=== PATIENT | female | born 1980 | race Caucasian/White ===

== ENCOUNTER 2025-06-28 20:34 | Outpatient (REF) | payer OTHER, SELFPAY ==
--- OUTSIDE RECORDS SUMMARY | 2025-06-17 11:15 | XMS_ITS | Encounter Summary ---
Author Organization [facility] Address [address] [place] [address] Care Team Providers Care Soap Grinder Name Role Phone No, Physician Primary Care Provider Unavailabl e Reason for Visit * Reason Comments Foot Problem Basilio heel pain, sever e; making it diff to walk Encounter Details Date Type Department Care Team (Late st Contact Info) Description 06/17/2025 11:15 AM EDT Office Visit [facility] [address] [place] [phone] Britney Benson, DPM [address] [place] [address] Plantar fasciitis of right foot (Primary Dx); Equinus contracture of ankle; Right foot pain; Plantar fasciitis of left foot; Left foot pain Social History Tobacco Use Types Packs/Day Years Used Date Smoking Tobacco: Never Smokeless Tobacco: Never Alcohol Use Standard Drinks/Week Comments Never 0 (1 standard drink = 0.6 oz pur e alcohol) Comments No Sex and Gender Information Value Date Recorded Sex Assigned at Not on file Legal Sex Female 10:39 AM EDT Gender Identity Not on file Sexual Orientation Not on file documented as of this encounter Last Filed Vital Signs Vital Sign Reading Time Taken Comments Blood Pressure 170/120 06/17/2025 11:14 AM EDT Pulse 80 06/17/2025 11:14 AM EDT Temperature 36.7 C (98 F) 06/17/2025 11:14 AM EDT Respiratory Rate - - Oxygen Saturation - - Inhaled Oxygen Concentration - - Weight - - Height - - Body Mass Index - - documented in this encounter Progress Notes * Britney Benson DPM - 06/17/2025 11:25 AM EDT Images from the original note were not included. Britney Benson DPM Patient Name: Chaya Lopez. . Date of : 1980, 44 y.o.. Gender: female. Subjective: Patient is a pleasant 44-year-old female who presents to clinic complaining of significant pain to the right heel today. Patient states that she has been trying to stretch but it causes her too much pain. She is also complaining of left heel pain. Patient states that she is limping and unable to ambulate. No other pedal complaints at this time. Denies fevers, chills, nausea, vomiting, chest pain,shortness of breath, or any other constitutional symptoms. Past Medical History: Diagnosis Date ADHD Bipolar 2 disorder, major depressive episode (HCC) Bronchitis Cellulitis of left leg Complex posttraumatic stress disorder Diastolic dysfunction Dizziness Edema Exposure to hepatitis C GERD (gastroesophageal reflux disease) Grief History of drug abuse in remission (HCC) Hormonal disorder Hypertension Injury of left shoulder Iron deficiency Left ankle injury Lumbar back pain with radiculopathy affecting right lower extremity Morbid obesity with BMI of 45.0-49.9, adult (HCC) Nerve pain Ovarian cyst Pain of left heel Pain of left heel Plantar fasciitis, bilateral Pseudotumor cerebri PTSD (post-traumatic stress disorder) Pulmonary artery hypertension (HCC) Situational anxiety Snoring Varicose vein of leg Vitamin D deficiency Past Surgical History: Procedure Laterality Date CHOLECYSTECTOMY CYSTO HAND SURGERY metacarpal ORIF HERNIA REPAIR HYSTERECTOMY KNEE SURGERY Left TONSILLECTOMY Social History [1] Physical Examination: BP (!) 170/120 (BP Location: Right arm, BP Cuff Size: Adult) Pulse 80 Temp 98 ??F (36.7 ??C) (Infrared) General Appearance: Alert, cooperative, no distress, appears stated age. Podiatric Exam Vascular: DP and PT pulses are palpable 2/4. Capillary refill time is less than 3 secs to distal digits. Skin temperature is warm to warm from proximal tibial tuberosity to distal digit. Localized nonpitting edema noted circumferentially to the left ankle. Neurological: Gross sensation is intact. Protective sensation is intact. Burning pain subjectively to the posterior lateral left heel. Dermatologic: No ecchymosis noted to the dorsal left foot. Cicatrix noted to the posterior lateral left heel with mild hypertrophic scar formation. No surrounding erythema, edema, dehiscence or any acute signs of infection. Interdigital spaces are clean dry and intact. Musculoskeletal: Significant pain on palpation to the plantar medial calcaneal tubercle, right heel. Significant pain on palpation to the posterior lateral aspect of the left heel at the Achilles tendon insertion. Pain noted circumferentially to the left ankle. Ankle joint range of motion is intactbut diminished in dorsiflexion with the knee extended and full with knee flexion. Muscle strength is 5/5 to dorsiflexors, plantar flexors, inverters and everters. Compartments soft and compressible. No calf pain Diagnoses: 1. Plantar fasciitis of right foot 2. Equinus contracture of ankle 3. Right foot pain Imaging: Left foot 3 views weightbearing radiographs were ordered on 06/17/2025 and I interpreted them as follows: No acute fractures or dislocations at this time. Joint space narrowing noted to the first metatarsophalangeal joint. Joint space narrowing noted to the subtalar joint with sclerosis noted. Plantar and posterior calcaneal enthesophyte Right foot 3 views weightbearing radiographs were ordered on 06/17/2025 and I personally interpretedthem as follows: No acute fractures or dislocations at this time. Joint space narrowing noted to the first metatarsophalangeal joint. Joint space narrowing noted to the tarsal metatarsal joints and subtalar joint with sclerosis noted. Plantar and posterior calcaneal enthesophyte Assessment/Plan: 06/09/2025 Patient was seen and evaluated. Discussed all clinical findings. I ordered, interpreted, and discussed left foot radiographic findings with patient as noted above. Patient has posterior insertional Achilles tendinitis and retrocalcaneal bursitis to the left foot. Patient reports that an MRI was not obtained prior to surgical intervention. Discussed pain that her pain can also be related to nerve pain related to sural neuritis given proximity of the cicatrix to the nerve. Discussed conservative treatment option consisting of offloading in good supportive open back shoeswith a wedge heel and a solid sole. Discussed applying Voltaren gel 1% up to 4 times per day to affected area. Discussed stretching, icing, and a Medrol Dosepak was prescribed and sent to patient's pharmacy to help decrease pain and inflammation. Moreover, discussed with patient the importance of discussing weight loss medication with her primary care physician. Additionally, an order for physical therapy was placed. This is medical necessary to regain proper function of Achilles tendon. Physical therapy sessions are 2-3 times per week and up to 4 weeks. Regarding patient's left dorsal foot, patient has contusion related to recent injury to the dorsal left foot. Recommended icing daily. All questions were answered to patient satisfaction. Patient understands to call with any questionsor concerns. Follow-up in 2 weeks for reevaluation. 06/17/2025 Patient was seen and evaluated. Discussed all clinical and radiographic findings. I ordered, interpreted, and discussed left and right foot radiographic findings with patient as noted above. Patient has significant pain to the right and left heel. Patient was previously diagnosed with Achilles denies involving the left heel. On today's examination, patient's right heel pain is consistent with plantar fasciitis. Discussed conservative treatment options for plantar fasciitis including stretching, icing, anti-inflammatories, and good supportive shoes. I illustrated proper stretching techniques in the office. Advised on proper supporting shoes. Recommended a steroidal injection to help alleviate pain and inflammation at the heel site. Patientwas agreeable to proceed with this. See procedure below. PROCEDURE: Plantar fascial injection, right foot The medial aspect of the right heel was prepped with alcohol. Following, a 2 cc of 1: 1 mix of Kenalog 40 mg and 0.5% Marcaine plain was injected into the medial aspect of the right heel. Patient tolerated the injection well. A Band- Aid was applied at the injection site. Patient expressed some painrelief following the procedure. All questions were answered to patient satisfaction. Patient understands to call with any questionsor concerns. Follow-up in 2 weeks. This note was partially created using voice recognition software and is inherently subject to errors including those of syntax and sound-alike substitutions which may escape proofreading. In such instances, original meaning may be extrapolated by contextual derivation. Britney Benson DPM, MS Podiatric Physician & Surgeon [1] Social History Socioeconomic History Marital status: Tobacco Use Smoking status: Never Smokeless tobacco: Never Substance and Sexual Activity Alcohol use: Never Drug use: Yes Types: Marijuana Social History Narrative Merged History Encounter documented in this encounter Plan of Treatment Upcoming Encounters Date Type Department Care Team (Late st Contact Info) Description 07/05/2025 3:30 PM EDT Office Visit [facility] [address] [place] [phone] Britney Benson DPM [address] [place] [address] documented as of this encounter Visit Diagnoses Diagnosis Plantar fasciitis of right foot- Primary Equinus contracture of ankle Right foot pain Pain in soft tissues of limb Plantar fasciitis of left foot Left foot pain Pain in soft tissues of limb documented in this encounter Administered Medications Inactive Administered Medications - up to 3 most recent administrations Medication Order MAR Action Action Date Dose Rate Site BUPivacaine HCl (MARCAINE) 0.5 % (5 mg/mL) injection 1 mL 1 mL, Injection, Once, On [facility] 06/17/25 at 1230, For 1 dose Given by Other 06/17/2025 11:42 AM EDT 1 mL Other triamcinolone acetonide (KENALOG-40) injection 40 mg 40 mg, Injection, Once, On Marisela 06/17/25 at 1230, For 1 dose Given by Other 06/17/2025 11:43 AM EDT 40 mg Ot her documented in this encounter Care Teams Soap Grinder Relationship Specialty Start Date End Date No, Physician [facility] PCP - General 06/17/25 documented as of this encounter
--- OUTSIDE RECORDS SUMMARY | 2025-06-23 04:53 | XMS_ITS | Continuity of Care Document ---
Author Organization [facility] Address [address] [place] [address] Phone Care Team Providers Care Senior Label Specialist Name Role Phone Aliza Estrada, Ángela Unavailable Unavailab le Procedures Procedure Date PSYTX PT&/FAMILY 60 MINUTES PSYTX PT&/FAMILY 60 MINUTES PSYTX PT&/FAMILY 60 MINUTES PSYCH DIAGNOSTIC EVALUATION Advance Directives Directive Yes / No Effective Date File Name No Information Encounters Encounter Description Practice Location Reason(s) For Visit Diagnoses Date Provider Providers Copied on Encounter PSYTX PT&/FAMILY 60 MINUTES [facility], [address] [place] [address], [id number] , [place] tel:[phone] [facility] Generalized Anxiety DisorderPersistent Depressive DisorderBody mass index [BMI] 45.0-49.9, adult [address] [place] [address], [id number], [place]. tel:[phone] PSYTX PT&/FAMILY 60 MINUTES [facility], [address] [place] [address], [id number] , [place] tel:[phone] [facility] Generalized Anxiety DisorderPersistent Depressive DisorderBody mass index [BMI] 45.0-49.9, adult 5 Al[address] [place] [address], [address], [place]. tel:[phone] PSYTX PT&/FAMILY 60 MINUTES [facility], [address] [place] [address], [id number] , tel: [phone] [facility] Generalized Anxiety DisorderPersistent Depressive DisorderBody mass index [BMI] 45.0-49.9, adult [address] [place] [address], [id number], [place]. tel:[phone] PSYCH DIAGNOSTIC EVALUATION [facility], [address] [place] [address], [id number] , tel: [phone] [facility] Body mass index [BMI] 45.0-49.9, adultGeneralized Anxiety DisorderPersistent Depressive Disorder 5 [address] [place] [address], [id number], [place]. tel:[phone] Family History Family Member Type Diagnosis Age At Onset No Information Payers Payer name Insurance type Covered democrat ID Authoriza tion(s) [employer] Medicaid [id number] Medicaid Wrap - [facility] [id number] Social History Type Description Quantity Date Captured Comments Alcohol Use Details Unknown Caffeine Use Details Unknown Tobacco Use Status No Information Smoking Status No Information Sex Female Sexual Orientation Straight or heterosexual Aug Gender Identity Female Chief Complaint And Reason For Visit No Information Reason For Referral Reason For Referral No Information Plan Of Treatment Date Type Action Status Goal Influenza vaccine. Due on due Goal Tdap Vaccine. Due on 2024 due Goal Hep A. Due on du e Goal Unhealthy drug use screening . Due on due Goal Tdap. Due on due Goal Lipid panel. Due on due Goal HPV. Due on due Goal Depression screening. Due on due Goal Hepatitis C screening. Due o n due Goal PRAPARE ASSESSMENT. Due on due Goal Unhealthy drug use screening . Due on due Goal Hep A. Due on du e Goal Tdap. Due on due Goal HPV. Due on due Goal PRAPARE ASSESSMENT. Due on due Goal Hepatitis C screening. Due o n due Goal Lipid panel. Due on due Goal Depression screening. Due on due Goal Influenza vaccine. Due on due Goal Tdap Vaccine. Due on 2024 due Goal Hep A. Due on du e Goal Lipid panel. Due on due Goal Depression screening. Due on due Goal PRAPARE ASSESSMENT. Due on due Goal Influenza vaccine. Due on due Goal Hepatitis C screening. Due o n due Goal Unhealthy drug use screening . Due on due Goal Tdap Vaccine. Due on 2024 due Goal Tdap. Due on due Goal HPV. Due on due Goal Tdap Vaccine. Due on 2024 due Goal Influenza vaccine. Due on due Goal Depression screening. Due on due Goal PRAPARE ASSESSMENT. Due on M due Goal Hepatitis C screening. Due o n due Goal Lipid panel. Due on 025 due Goal HPV. Due on due Goal Tdap. Due on due Goal Unhealthy drug use screening . Due on due Appointment Chaya Lopez BOOKED History Of Present Illness Encounter Date Complaint History Of Prese nt Illness No Information Functional Status Date Functional Assessmen t No Information Instructions Date Instruction Additional Celine nelson Giving encouragement to exercise Related to Body mass index [BMI] 45.0-49.9, adult Food education, guid ance, and counseling Related to Body mass index [BMI] 45.0-49.9, adult Assessments Type Assessment Date assessment Generalized Anxiety Disorder May impression Social conflict, Rum ination, Low motivation, Apathy, Low attention maintenance, Tearfulness, Irritability, Frequently feelings of dread, low sleep onset and poor sleep maintenance assessment Persistent Depressive Disorder J impression Social conflict, Rum ination, Low motivation, Apathy, Low energy, Low self-efficacy, Low attention maintenance, Tearfulness, Irritability, fluctuating appetite, low sleep onset, and poor sleep maintenance assessment Body mass index [BMI] 45.0-49.9, adult Patient Care Teams Name Effective Dates (start - stop) Status Members No Information
--- OUTSIDE RECORDS SUMMARY | 2025-06-28 14:00 | XMS_ITS | Encounter Summary ---
Author Organization [facility] Address [address] [facility] [place] [address] Care Team Providers Care Home Care Manager Name Role Phone Iman Whittaker MD Primary Care Provider Holly Du MD Unavailable [phone] Reason for Visit * Reason Comments Well Women Visit Encounter Details Date Type Department Care Team (Latest Contact Info) Description 06/28/2025 2:00 PM EDT Procedure Visit [facility] [address] [place] [address] Chaya Caballero, FARAZ [address] [facility] [place] [address] Well woman exam with routine gynecological exam; Breast cancer screening by mammogram; Vaginal discharge; STD exposure; Frequent urination Social History Tobacco Use Types Packs/Day Years Used Date Smoking Tobacco: Never Alcohol Use Standard Drinks/Week Comments Yes 0 (1 standard drink = 0.6 oz pure alcohol) caffeine: more than 4 cups per day ; soda AUDIT-C Answer Date Recorded Q1: How often do you have a drink containing alc ohol? Monthly or less 03/25/2024 Q2: How many drinks containi ng alcohol do you have on a typical day when you are drinking? 3 or 4 03/25/2024 Q3: How often do you have si x or more drinks on one occasion? Less than monthly 03/25/2024 Comments Unknown Sex and Gender Information Value Date Recorded Sex Assigned at Not on file Legal Sex Female 7:37 PM EDT Gender Identity Not on file Sexual Orientation Not on file documented as of this encounter Progress Notes * Chaya Caballero NP - 06/28/2025 2:00 PM EDT Reason for Appointment: Patient ID: Lisa Lopez is a 44 y.o. female who presents for Well Women Visit Patient presents today for Annual Exam. MEDICATIONS Current Outpatient Medications Medication Instructions acetaZOLAMIDE (DIAMOX) 250 mg, Oral, 2 times daily albuterol HFA 90 mcg/act inhaler Inhale ALPRAZolam (Xanax) 0.5 MG tablet 1 TAB(S) ORAL TWICE A DAY ,X14 DAY(S), NEEDED FOR ANXIETY amphetamine-dextroamphetamine (Adderall) 10 MG tablet 1 tablet, 2 times daily amphetamine-dextroamphetamine XR (Adderall XR) 30 MG 24 hr capsule TAKE 1 CAPSULE BY MOUTH EVERY DAY IN THE MORNING Buprenorphine HCl-Naloxone HCl (Suboxone) 8-2 MG SL film Sublingual, Daily, DISSOLVE 1 AND 1/4 FILM citalopram (CELEXA) 40 mg, Oral, Daily, 1 tablet doxepin (SINEquan) 25 MG capsule Dulera 200-5 MCG/ACT inhaler Inhalation, Every 12 hours fluticasone (Flonase) 50 MCG/ACT nasal spray 1 spray, Each Nostril, Daily, Shake gently. Before first use, prime pump. After use, clean tip and replace cap. hydrOXYzine pamoate (Vistaril) 50 MG capsule TAKE 1 CAPSULE BY MOUTH EVERY AFTERNOON AND 2 CAPSULESAT BEDTIME ibuprofen 800 mg, Oral, Every 8 hours, 1 tablet with food or milk ipratropium-albuterol (Duo-Neb) 0.5-2.5 mg/3 mL nebulizer solution 3 mL, Nebulization, 4 times daily RT, INHALE 1 VIAL VIA NEBULIZER FOUR TIMES A DAY NEEDED FOR WHEEZING KLOR-CON 10 MEQ ER tablet 10 mEq, Oral, 3 times daily, 1 capsule lamoTRIgine (LAMICTAL) 200 mg, Oral, Daily meclizine (ANTIVERT) 25 mg, Oral, 3 times daily PRN, 1 tablet montelukast (SINGULAIR) 10 mg, Oral, Daily nitrofurantoin (macrocrystal-monohydrate) (MACROBID) 100 mg, Oral, 2 times daily nortriptyline (PAMELOR) 25 mg, Oral, Nightly, 1 capsule ondansetron ODT (ZOFRAN-ODT) 8 mg, Oral, Every 8 hours PRN, 1 tablet on the tongue and allow to dissolve as needed pantoprazole (PROTONIX) 40 mg, Oral, Daily, 1 tablet tiZANidine (Zanaflex) 4 MG tablet Oral, 4 times daily, 1 tablet tiZANidine (ZANAFLEX) 4 mg, Oral, Every 6 hours PRN verapamil SR (CALAN SR) 120 mg, Oral, Daily ALLERGIES Allergies Allergen Reactions Barium Sulfate Seroquel [Quetiapine] Tylenol [Acetaminophen] PROBLEMS Active Ambulatory Problems Diagnosis Date Noted Insomnia 03/25/2024 Headache 03/25/2024 Obesity 03/25/2024 Common migraine 03/25/2024 Idiopathic intracranial hypertension 03/25/2024 Sleep related hypoxia 03/25/2024 Resolved Ambulatory Problems Diagnosis Date Noted No Resolved Ambulatory Problems Past Medical History: Diagnosis Date Anxiety Asthma (HCC) Benign intracranial hypertension Bipolar disorder (HCC) Depression Hepatitis B History of medical problems Insomnia, unspecified Kidney disease Kidney stones Papilledema Pseudotumor cerebri PTSD (post-traumatic stress disorder) HISTORY PAST MEDICAL HISTORY SOCIAL HISTORY Past Medical History: Diagnosis Date Anxiety Asthma (HCC) Benign intracranial hypertension Bipolar disorder (HCC) Common migraine Depression Headache Hepatitis B History of medical problems buldging disc Insomnia, unspecified Kidney disease Kidney stones Obesity Papilledema Pseudotumor cerebri PTSD (post-traumatic stress disorder) Social History Tobacco Use Smoking status: Never Smokeless tobacco: Not on file Substance Use Topics Alcohol use: Yes Comment: caffeine: more than 4 cups per day ; soda Drug use: Yes Types: Marijuana FAMILY HISTORY Family History Problem Relation Name Age of Onset Bipolar disorder Mother Stroke Father Hypertension Other SURGICAL HISTORY Past Surgical History: Procedure Laterality Date CHOLECYSTECTOMY HERNIA REPAIR HYSTERECTOMY 2005 KNEE SURGERY Right 2001 LITHOTRIPSY 2009 OOPHORECTOMY Right 2016 left remains OTHER SURGICAL HISTORY cholectomy OTHER SURGICAL HISTORY 04/16/2018 Rt 5th ORIF DAP TONSILLECTOMY age 11 REVIEW OF SYSTEMS Review of Systems: Review of Systems Constitutional: Negative. HENT: Negative. Eyes: Negative. Respiratory: Negative. Cardiovascular: Negative. Gastrointestinal: Negative. Genitourinary: Positive for vaginal discharge. Musculoskeletal: Negative. Skin: Negative. Neurological: Negative. All other systems reviewed and are negative. Hematological: Negative. Endocrine: Negative. Allergic/Immunologic: Negative. OBJECTIVE Objective: Physical Exam Constitutional: Appearance: Normal appearance. She is well-developed. Genitourinary: Vulva normal. Breasts: Breasts are soft. Right: Normal. Left: Normal. Cardiovascular: Rate and Rhythm: Normal rate and regular rhythm. Pulmonary: Effort: Pulmonary effort is normal. Breath sounds: Normal breath sounds. Abdominal: General: Bowel sounds are normal. There is no distension. Palpations: Abdomen is soft. Tenderness: There is no abdominal tenderness. There is no guarding or rebound. Musculoskeletal: General: No swelling. Normal range of motion. Right lower leg: No edema. Left lower leg: No edema. Neurological: Mental Status: She is alert and oriented to person, place, and time. Skin: General: Skin is warm and dry. Psychiatric: Mood and Affect: Mood normal. Behavior: Behavior normal. Vitals and nursing note reviewed. Exam conducted with a rn dermatology present. Vitals: Estimated body mass index is 46.67 kg/m?? as calculated from the following: Height as of 02/02/25: 5' 9 . Weight as of 02/02/25: 316 lb. BP: No LMP recorded. ASSESSMENT & PLAN ICD-10-CM 1. Well woman exam with routine gynecological exam Z01.419 THIN PREP TIS PAP AND HR HPV DNA 2. Breast cancer screening by mammogram Z12.31 Bilateral screening mammogram Bilateral screening mammogram 3. Vaginal discharge N89.8 SURESWAB(R) ADVANCED VAGINITIS PLUS, TMA 4. STD exposure Z20.2 CHLAMYDIA TRACHOMATIS (GENITO/STI) Neisseria gonorrhea DNA probe, direct 5. Frequent urination R35.0 POCT urinalysis dipstick manually resulted Annual Exam: Patient presents today for an annual exam. Patient states she is doing well and has no complaints. Pt requests that STD testing be done. Pap/cxs was obtained without difficulty. Orders Placed This Encounter Procedures Bilateral screening mammogram CHLAMYDIA TRACHOMATIS (GENITO/STI) Neisseria gonorrhea DNA probe, direct POCT urinalysis dipstick manually resulted Follow Up: Patient is to return in one year for annual unless needed otherwise. Documented by Suzi Stephens LPN on behalf of: Chaya Caballero NP documented in this encounter Plan of Treatment Scheduled Orders Name Type Priority Associated Diagnoses Orde r Schedule Bilateral screening mammogram Imaging Routine Breast cancer screening by mammogram Expected: 06/28/2025 (Approximate), Expires: 08/28/2026 THIN PREP TIS PAP AND HR HPV DNA Pathology and Cytology Routine Well woman exam with routine gynecological exam Ordered: 06/28/2025 SURESWAB(R) ADVANCED VAGINITIS PLUS, TMA Pathology and Cytology Routine Vaginal discharge Ordered: 06/28/2025 CHLAMYDIA TRACHOMATIS (GENITO/STI) Lab Routine STD exposure Ordered: 06/28/2025 Neisseria gonorrhea DNA probe, direct Lab Routine STD exposure Ordered: 06/28/2025 documented as of this encounter Procedures Procedure Name Priority Date/Time Associated Diagnosis Comments POCT URINALYSIS DIPSTICK Routine 06/28/2025 3:28 PM EDT Frequent urination documented in this encounter Results * (ABNORMAL) POCT urinalysis dipstick manually resulted (06/28/2025 3:28 PM EDT) Color, UA Yellow Clarity, UA Clear Glucose, UA Positive Negative - 2000(110) ++++ mg/dL Bilirubin, UA Negative Negative - 4(70) +++ mg/dL Ketones, UA Negative Negative - 160(16) ++++ mg/dL Spec Grav, UA 1.025 1 - 1.03 Blood, UA Negative Negative - 50 Galen/mcL pH, UA 6.0 5 - 9 Protein, UA Negative Negative - 2000(20) ++++ mg/dL Urobilinogen, UA 1.0 0.2 - 12 mg/dL Leukocytes, UA Negative Negative - 500+++ Eh/mcL Nitrite, UA Negative Negative - Positive Urine 06/28/2025 3:28 PM EDT Chaya Caballero NP POINT OF CARE TEST ENTER/EDIT ORDERABLES Final Result documented in this encounter Visit Diagnoses Diagnosis Well woman exam with routine gynecological exam Routine gynecological examination Breast cancer screening by mammogram Vaginal discharge Leukorrhea, not specified as infective STD exposure Frequent urination Urinary frequency documented in this encounter Care Teams Home Care Manager Relationship Specialty Start Date End Date Iman Whittaker MD [address] [place] [phone] PCP - General Family Medicine 08/24/24 Holly Du MD [address] [place] [id number] Referring Physician Family Medicine 02/23/25 documented as of this encounter
--- OUTSIDE RECORDS SUMMARY | 2025-06-28 20:38 | XMS_ITS | Encounter Summary ---
Author Organization [facility] Address [address] [facility] [place] [address] Care Team Providers Care Hairspring Fabrication Supervisor Name Role Phone Iman Whittaker MD Primary Care Provider Holly Du MD Unavailable Encounter Details Date Type Department Care Team (Late st Contact Info) Description 06/21/2025 Abstract [facility] [address] [place] [address] Florencio Villanueva, DPM FACFAS [address] [facility] [place] [address] Social History Tobacco Use Types Packs/Day Years [...] on file documented as of this encounter Plan of Treatment Not on file documented as of this encounter Visit Diagnoses Not on filedocumented in this encounter Care Teams Hairspring Fabrication Supervisor Relationship Specialty Start Date End Date Iman Whittaker MD [address] [place] [address] PCP - General Family Medicine 08/24/24 Holly Du MD [address] [facility] [address] [place] [address] Referring Physician Family Medicine 02/23/25 documented as of this encounter
--- OUTSIDE RECORDS SUMMARY | 2025-06-28 20:38 | XMS_ITS | Clinical Summary ---
Author Organization [facility] Address [address] [place] [address] Care Team Providers Care Discotheque Dancer Name Role Phone Iman Whittaker MD Primary Care Provider [phone] Holly Du MD Unavailable Allergies Active Allergy Reactions Criticality Noted Date Comments Barium Sulfate 03/25/2024 Quetiapine 03/25/2024 Acetaminophen 03/25/2024 Medications albuterol HFA 90 mcg/act inhaler Inhale 11/22/20 23 Active ALPRAZolam (Xanax) 0.5 MG tablet 1 TAB(S) ORAL TWICE A DAY ,X14 DAY(S), NEEDED FOR ANXIETY 06/18/20 23 Active Buprenorphine HCl-Naloxone HCl (Suboxone) 8-[address] under the tongue Daily DISSOLVE 1 AND 1/4 FILM 11/26/19 24 Active citalopram (CeleXA) 40 MG tablet Take 40 mg by mouth Daily 1 tablet 11/22/20 23 Active doxepin (SINEquan) 25 MG capsule 11/22/20 23 Active hydrOXYzine pamoate (Vistaril) 50 MG capsule TAKE 1 CAPSULE BY MOUTH EVERY AFTERNOON AND 2 CAPSULES AT BEDTIME 11/22/20 23 Active ibuprofen 800 MG tablet Take 800 mg by mouth every 8 (eight) hours 1 tablet with food or milk 11/22/20 23 Active ipratropium-albute rol (Duo-Neb) 0.5-2.5 mg/3 mL nebulizer solution Take 3 mL by nebulization in the morning and 3 mL at noon and 3 mL in the evening and 3 mL before bedtime. INHALE 1 VIAL VIA NEBULIZER FOUR TIMES A DAY NEEDED FOR WHEEZING . 09/23/20 Active Dulera 200-5 MCG/ACT inhaler Inhale every 12 (twelve) hours Active nitrofurantoin, macrocrystal-monoh ydrate, (Macrobid) 100 MG capsule Take 100 mg by mouth in the morning and 100 mg before bedtime. 09/12/20 Active montelukast (Singulair) 10 MG tablet Take 10 mg by mouth Daily 11/22/20 Active pantoprazole (ProtoNix) 40 MG EC tablet Take 40 mg by mouth Daily 1 tablet 11/22/20 Active KLOR-CON 10 MEQ ER tablet Take 10 mEq by mouth in the morning and 10 mEq in the evening and 10 mEq before bedtime. 1 capsule. Active tiZANidine (Zanaflex) 4 MG tablet Take by mouth 4 (four) times a day 1 tablet 11/22/20 Active verapamil SR (Calan SR) 120 MG ER tablet Take 120 mg by mouth in the morning. 12/18/19 Active ondansetron ODT (Zofran-ODT) 8 MG disintegrating tablet Take 8 mg by mouth every 8 (eight) hours if needed for nausea or vomiting 1 tablet on the tongue and allow to dissolve as needed Active meclizine (Antivert) 25 MG tablet Take 25 mg by mouth 3 (three) times a day as needed for dizziness 1 tablet Active fluticasone (Flonase) 50 MCG/ACT nasal spray Administer 1 spray into each nostril Daily Shake gently. Before first use, prime pump. After use, clean tip and replace cap. Active nortriptyline (Pamelor) 25 MG capsule Take 25 mg by mouth at bedtime 1 capsule Active lamoTRIgine (LaMICtal) 200 MG tablet Take 200 mg by mouth Daily Active acetaZOLAMIDE (Diamox) 250 MG tabletIndications: Benign intracranial hypertension TAKE 1 TABLET BY MOUTH TWICE A DAY 60 tablet 1 03/30/20 24 Active tiZANidine (Zanaflex) 4 MG tabletIndications: Gastrocnemius equinus of left lower extremity Take 1 tablet (4 mg) by mouth every 6 (six) hours if needed for muscle spasms for up to 10 days 30 tablet 02/03/20 25 Active amphetamine-dextro amphetamine XR (Adderall XR) 30 MG 24 hr capsule TAKE 1 CAPSULE BY MOUTH EVERY DAY IN THE MORNING 02/17/20 25 Active amphetamine-dextro amphetamine (Adderall) 10 MG tablet Take 1 tablet by mouth in the morning and 1 tablet before bedtime. 12/09/19 25 Active Active Problems Problem Noted Date Diagnosed Date Insomnia 03/25/2024 Headache 03/25/2024 Obesity 03/25/2024 Common migraine 03/25/2024 Idiopathic intracranial hypertension 03/25/2024 Overview (03/25/2024): Presumed long-standing idiopathic intracranial hypertension. Per documentation from prior office notes, diagnostic lumbar puncture (LP) in 2016 confirmed opening pressure of 25 cm CSF. Records of this are currently unavailable to me. LP on 01/25/22 identified normal opening pressure of 18.5 cm CSF. However, the patient admits she may have been taking acetazolamide and furosemide when this was completed which could have skewed results. The patient's BMI is > 45. [facility] examination on 02/04/23 was without disc edema. PLAN: - Trial restarting acetazolamide 250 mg PO twice a day. I counseled the patient on potential side effects. She verbalizes understanding and wishes to proceed - Could consider repeat LP for treatment of IIH in the future. The patient requested this today, stating LPs have significantly improved her headaches in the past. We will trial pharmacologic therapy first given the potential risks associated with LPs - Consider referral to sleep medicine for consideration for PSG in the future given the daily frequency of headaches - I discussed the importance of serial ophthalmology examinations with the patient to help prevent visual impairment/loss. She verbalizes understanding and states she will schedule an appointment with [facility] - Weight loss encouraged. I offered referral to circular sawyer helper or weight loss clinic. Patient declined Sleep related hypoxia 03/25/2024 Encounters Date Type Department Care Team Description 06/28/2025 2:00 PM EDT Procedure Visit [facility] [address] [facility] [address] [address] Chaya Cabalelro NP Well woman exam with routine gynecological exam; Breast cancer screening by mammogram; Vaginal discharge; STD exposure; Frequent urination 06/28/2025 Bamboo flowsheet [facility] [address] [facility] [place] [address] Chaya Caballero NP 06/21/2025 Abstract [facility] [address] [place] [address] Florencio Villanueva, DPM FACFAS 06/08/2025 Telephone [facility] [address] [place] [address] Naima Yeh MA 04/30/2025 Telephone [facility] [address] [place] [address] Florencio Villanueva, DPM FACFAS cancelled appt 04/27/2025 Abstract [facility] [address] [place] [address] Florencio Villanueva, DPM FACFAS from Last 3 Months Family History Medical History Relation Name Comments Stroke Father Bipolar disorder Mother Hypertension Other Relation Name Status Comments Father Alive Mother Alive Other Social History Tobacco Use Types Packs/Day Years Used Date Smoking Tobacco: Never Tobacco Cessation:Counseling Given: Yes Alcohol Use Standard Drinks/Week Comments Yes 0 [...] on file Sexual Orientation Not on file Last Filed Vital Signs Vital Sign Reading Time Taken Comments Blood Pressure 132/80 02/02/2025 8:59 AM EDT Pulse 72 02/02/2025 8:59 AM EDT Temperature - - Respiratory Rate - - Oxygen Saturation 98% 02/20/2024 10:57 PM EDT Inhaled Oxygen Concentration - - Weight 143 kg (316 lb) 02/02/2025 8:59 AM EDT Height 175.3 cm (5' 9 ) 02/02/2025 8:59 AM EDT Body Mass Index 46.67 02/02/2025 8:59 AM EDT Plan of Treatment Not on file Procedures Procedure Name Priority Date/Time Associated Diagnosis Comments POCT URINALYSIS DIPSTICK Routine 06/28/2025 3:28 PM EDT Frequent urination from Last 3 Months Results * (ABNORMAL) POCT urinalysis dipstick manually [...] OF CARE TEST ENTER/EDIT ORDERABLES Final Result from Last 3 Months Insurance [employer] Care Teams Discotheque Dancer Relationship Specialty Start Date End Date Iman Whittaker MD [address] [place] [address] PCP - General Family Medicine 08/24/24 Holly Du MD [address] [place] [address] [address] [place] [address] Referring Physician Family Medicine 02/23/25
--- OUTSIDE RECORDS SUMMARY | 2025-06-28 20:38 | XMS_ITS | Encounter Summary ---
Author Organization [facility] Address [address] [place] [address] Care Team Providers Care Job Coach Name Role Phone Neetu Sally RUTH Unavailable Iman Whittaker MD Primary Care Provider Holly Du MD Unavailable Encounter Details Date Type Department Care Team (Late st Contact Info) Description 09/10/2024 Abstract [facility] [address] [place] [id number] Florencio Villanueva, DPM FACFAS [address] [place] [address] Social History Tobacco Use Types [...] on filedocumented in this encounter Care Teams Job Coach Relationship Specialty Start Date End Date Iman Whittaker MD [address] [place] [address] PCP - General Family Medicine 08/24/24 Sally De Anda NP [address] [place] [address] Referring Physician Family Medicine 11/27/23 02/22/25 Holly Du MD [address] [place] [id number] Referring Physician Family Medicine 02/23/25 documented as of this encounter
--- OUTSIDE RECORDS SUMMARY | 2025-06-28 20:38 | XMS_ITS | Encounter Summary ---
Author Organization [facility] Address [address] [place] [address] Care Team Providers Care Federal Judge Name Role Phone Iman Whittaker MD Primary Care Provider Holly Du MD Unavailable [phone] Encounter Details Date Type Department Care Team (Late st Contact Info) Description 04/27/2025 Abstract [facility] [address] [place] [address] Florencio Villanueva, DPM FACFAS [address] [place] [address] Social History Tobacco Use Types [...] on filedocumented in this encounter Care Teams Federal Judge Relationship Specialty Start Date End Date Iman Whittaker MD [address] [place] [address] PCP - General Family Medicine 08/24/24 Holly Du MD [address] [facility] [address] [place] [address] Referring Physician Family Medicine 02/23/25 documented as of this encounter
--- OUTSIDE RECORDS SUMMARY | 2025-06-28 20:38 | XMS_ITS | Clinical Summary ---
Author Organization [facility] Address [address] [place] [address] Phone Care Team Providers Care Spa Director/Finance Name Role Phone Sally De Anda DIRECTOR MEDICAL SAFETY-MATHEMATICS IMPROVEMENT TEACHER Primary Care Pr ovider Allergies Active Allergy Reactions Criticality Noted Date Comments Acetaminophen-Codeine Shortness of breath High 09/26 sharp stomach pain Medications lamoTRIgine (LaMICtal) 200 mg tablet Take 1 tablet (200 mg) by mouth once daily. 4 Active citalopram (CeleXA) 40 mg tablet Take 1 tablet (40 mg) by mouth once daily. 4 Active montelukast (Singulair) 10 mg tablet 4 Active predniSONE (Deltasone) 10 mg tabletIndication s:Acute bronchitis, unspecified organism Take 6 tabs PO daily x1 day, then take 5 tabs daily x1 day, then take 4 tabs daily x1 day, then take 3 tabs daily x1 day, then take 2 tabs daily x1 day, then take 1 tab daily x1 day. Take with a meal. 21 tablet 4 Active azithromycin (Zithromax Z-Mauri) 250 mg tabletIndication s:Acute bronchitis, unspecified organism Take 2 tablets by mouth at once on day 1, then 1 tablet once a day on days 2-5. Take with a meal. 6 tablet 4 Active benzonatate (Tessalon) 100 mg capsuleIndicatio ns:Acute bronchitis, unspecified organism Take 1-2 capsules (100-200 mg) by mouth every 8 hours if needed for cough. Do not crush or chew. 60 capsule Active Active Problems No known active problems Social History Tobacco Use Types Packs/Day Years Used Date Smoking Tobacco: Never Smokeless Tobacco: Never Tobacco Cessation:Counseling Given: Not Answered Alcohol Use Standard Drinks/Week Comments Not Currently 0 (1 standard drink = 0.6 oz pur e alcohol) Comments Unknown Sex and Gender Information Value Date Recorded Sex Assigned at Not on file Legal Sex Female 2:21 AM EST Gender Identity Not on file Sexual Orientation Not on file Last Filed Vital Signs Vital Sign Reading Time Taken Comments Blood Pressure 123/87 03/20/2024 2:48 PM EDT Pulse 69 03/20/2024 2:48 PM EDT Temperature 36.6 C (97.8 F) 03/20/2024 2:48 PM EDT Respiratory Rate 14 03/20/2024 2:48 PM EDT Oxygen Saturation 95% 03/20/2024 2:48 PM EDT Inhaled Oxygen Concentration - - Weight 150 kg (330 lb) 03/20/2024 2:48 PM EDT Height 175.3 cm (5' 9 ) 03/20/2024 2:48 PM EDT Body Mass Index 48.73 03/20/2024 2:48 PM EDT Plan of Treatment Health Maintenance Due Date Last Done Comments CT Colonography 1978 Colonoscopy 1978 Colorectal Cancer Screening 1978 FIT-DNA (Cologuard) 1978 FIT 1978 HIV Screening 1978 Lipid Panel 1978 Sigmoidoscopy 1978 Yearly Adult Physical 1978 MMR Vaccines (1 of 1 - Stand mj series) 1979 Diabetes Screening 1996 Hepatitis C Screening 1996 Hepatitis A Vaccines (1 of 2 - Risk 2-dose series) 1997 Hepatitis B Vaccines (1 of 3 - 19+ 3-dose series) 1997 Pneumococcal Vaccine: Pediat rics and At-Risk Adult Patients (1 of 2 - PCV) 1997 Cervical Cancer Screening 1999 HPV/Cotest 1999 Pap Smear 1999 DTaP/Tdap/Td Vaccines (1 - Tdap) 2000 Mammogram 2018 COVID-19 Vaccine (2023-2 5 season) 2024 Influenza Vaccine (#1) 2025 Zoster Vaccines (1 of 2) 2028 HIB Vaccines Aged Out No longer eligi ble based on patient's age to complete this topic HPV Vaccines Aged Out No longer eligi ble based on patient's age to complete this topic IPV Vaccines Aged Out No longer eligi ble based on patient's age to complete this topic Meningococcal Vaccine Aged Out No shaji dusty eligible based on patient's age to complete this topic Rotavirus Vaccines Aged Out No longer eligible based on patient's age to complete this topic Insurance Member Subscriber Plan / Payer (Ef fective 2014-Present) Name:Chaya Lopez Relation to Subscriber:Self Name:John Chaya L Payer ID:[id number] (NAIC) Group ID:[id number] Type:Not on file Address: [place] [phone] Member Subscriber Plan / Payer (Ef fective 2014-Present) Name:Chaya Lopez Relation to Subscriber:Self Name:John Chaya L Payer ID:[id number] (NAIC) Group ID:[id number] Type:Not on file Address: [address] [place] [phone] Care Teams Spa Director/Finance Relationship Specialty Start Date End Date Sally De Anda APRN-ELHAM [address] [place] [facility] [place] [address] PCP - General Family Medicine 03/20/24
--- OUTSIDE RECORDS SUMMARY | 2025-06-28 20:38 | XMS_ITS | Encounter Summary ---
Author Organization [facility] Address [address] [place] [address] Care Team Providers Care Trans Router Name Role Phone No, Physician Primary Care Provider Unavailabl e Encounter Details Date Type Department Care Team (Latest Contact Info) Description 06/17/2025 Travel Social History Tobacco Use Types Packs/Day Years [...] as of this encounter Plan of Treatment Upcoming Encounters Date Type Department Care Team (Late st Contact Info) Description 07/05/2025 3:30 PM EDT Office Visit [facility] Podiatry [address] [place] [phone] Britney Benson, RAJENDRA [address] [place] [address] documented as of this encounter Visit Diagnoses Not on filedocumented in this encounter Care Teams Trans Router Relationship Specialty Start Date End Date No, Physician [facility] PCP - General 06/17/25 documented as of this encounter
--- OUTSIDE RECORDS SUMMARY | 2025-06-28 20:38 | XMS_ITS | Clinical Summary ---
Author Organization [facility] Address [address] [place] [address] Care Team Providers Care Director Of Vital Statistics Name Role Phone No, Physician Primary Care Provider Unavailabl e Allergies Active Allergy Reactions Criticality Noted Date Comments Acetaminophen Other (See Comments) 05/11/2013 #3 Amoxicillin Rash Low 12/25/2016 Barium Iodide Nausea and vomiting 06/07/2025 Acetaminophen-Codeine Other (See Comments) 05/25 Abdominal pain Propoxyphene N-Acetaminophen Nausea and vomiting 06/07/2025 Doxycycline Diarrhea,GI Intolerance 12/25/2016 Quetiapine Nausea and vomiting 06/07/2025 Medications dextroamphetami ne-amphetamine (ADDERALL XR) 30 MG 24 hr capsule Take 1 (one) capsule (30 mg total) by mouth every morning . Active albuterol 90 mcg/actuation inhaler Inhale 2 (two) puffs every 6 (six) hours as needed for wheezing . Active citalopram (CELEXA) 40 MG tablet Take 1 (one) tablet (40 mg total) by mouth daily . Active mometasone-form oterol (Dulera) 200-5 mcg/actuation inhaler Inhale 2 (two) puffs 2 (two) times a day . Active gabapentin (NEURONTIN) 300 MG capsule Take 1 (one) capsule (300 mg total) by mouth every 8 (eight) hours . Active ibuprofen (ADVIL,MOTRIN) 800 MG tablet Take 1 (one) tablet (800 mg total) by mouth every 6 (six) hours as needed for pain . Active lamoTRIgine (LAMICTAL) 200 MG tablet Take 1 (one) tablet (200 mg total) by mouth daily . Active furosemide (LASIX) 20 MG tablet Take 1 (one) tablet (20 mg total) by mouth 2 (two) times a day . Active pantoprazole (PROTONIX) 20 MG tablet Take 1 (one) tablet (20 mg total) by mouth daily . Active oxyCODONE-aceta minophen (PERCOCET) 7.5-325 mg per tablet Take 1 (one) tablet by mouth 2 (two) times a day as needed for pain . Active potassium chloride 20 mEq TbER Take 1 (one) tablet (20 mEq total) by mouth daily . Active montelukast (SINGULAIR) 10 mg tablet Take 1 (one) tablet (10 mg total) by mouth nightly . Active budesonide-form oteroL (SYMBICORT) 160-4.5 mcg/actuation inhaler Inhale 2 (two) puffs 2 (two) times a day . Active tiZANidine (ZANAFLEX) 4 MG tablet Take by mouth 3 (three) times a day . Active methylPREDNISol one (Medrol, Mauri,) 4 mg tablet Follow package directions . 21 tablet Active Hospital, Clinic, or Other Facility Administered Medication Ordered Dose Route Frequency Start Date End Date Status triamcinolone acetonide (KENALOG-40) injection 40 mg 40 mg Inj Once 06/17/2025 06/17/2025 Ended BUPivacaine HCl (MARCAINE) 0.5 % (5 mg/mL) injection 1 mL 1 mL Inj Once 06/17/2025 06/17/2025 Ended Active Problems No known active problems Encounters Date Type Department Care Team Description 06/17/2025 11:15 AM EDT Office Visit [facility] Podiatry [address] [place] [phone] Britney Benson DPM Plantar fasciitis of right foot (Primary Dx); Equinus contracture of ankle; Right foot pain; Plantar fasciitis of left foot; Left foot pain 06/17/2025 Travel 06/08/2025 2:15 PM EDT Office Visit [facility] Podiatry [address] [place] [address] Britney Benson DPM Achilles tendinitis, left leg (Primary Dx); Equinus contracture of ankle; Retrocalcaneal bursitis (back of heel), left; Ankle swelling, left; Neuritis of left foot; Contusion of left foot, initial encounter 06/08/2025 Travel 06/07/2025 Abstract [facility] Podiatry [address] [place] [phone] Britney Benson DPM 06/07/2025 Abstract [facility] Physician [facility] Podiatry [address] [place] [phone] Britney Benson DPM 06/07/2025 Transcribe Orders [facility] Physician [facility] Podiatry [address] [place] [phone] Britney Benson DPM Ankle swelling, left (Primary Dx) from Last 3 Months Family History Medical History Relation Comments COPD Mother Depression Mother Relation Status Comments Mother Social History Tobacco Use Types Packs/Day Years Used Date Smoking Tobacco: Never Smokeless Tobacco: Never Tobacco Cessation:Counseling Given: Not Answered Alcohol Use Standard Drinks/Week Comments Never 0 [...] - - Body Mass Index - - Plan of Treatment Upcoming Encounters Date Type Department Care Team (Late st Contact Info) Description 07/05/2025 3:30 PM EDT Office Visit [facility] Physician [facility] Podiatry [address] [place] [phone] Britney Benson DPM [address] [place] [phone] Health Maintenance Due Date Last Done Comments CT Colonography 1978 Colonoscopy 1978 Colorectal Cancer Screening/Monitoring 1978 Fecal DNA 1978 Fecal occult blood test (FOBT,FIT) 1978 Flexible sigmoidoscopy 1978 Tetanus: Every 10yrs 1978 Wellness Visit 1981 Depression Screening/Follow-Up (PHQ-2/9) 1990 HIV Screening 1993 Hepatitis C Screening 1996 Pneumococcal Vaccine: Ped or At-Risk (1 of 2 - PCV) Mammogram 2018 COVID-19 Vaccine ( season) 2024 Influenza Vaccine (#1) 2025 Procedures Procedure Name Priority Date/Time Associated Diagnosis Comments XR FOOT LEFT 3+ VIEWS (STANDARD) Routine 06/17/2025 11:22 AM EDT Left foot pain XR FOOT RIGHT 3+ VIEWS (STANDARD) Routine 06/17/2025 11:22 AM EDT Right foot pain XR FOOT LEFT 3+ VIEWS (STANDARD) Routine 06/08/2025 3:20 PM EDT Pain in left foot from Last 3 Months Results * XR Foot Left 3+ Views (Standard) (06/17/2025 11:22 AM EDT) Only the most recent of2 resultswithin the time period is included. Anatomical Region Laterality Modality Foot, Ankle Digital Radiogra phy Narrative 06/18/2025 10:09 AM EDT No acute fractures or dislocations at this time. Joint space narrowing noted to the first metatarsophalangeal joint. Joint space narrowing noted to the subtalar joint with sclerosis noted. Plantar and posterior calcaneal enthesophyte us Britney Benson DPM IMG DIAGNOSTIC IMAGING ORD ERABLES Final Result * XR Foot Right 3+ Views (Standard) (06/17/2025 11:22 AM EDT) Anatomical Region Laterality Modality Foot, Ankle Digital Radiogra phy Narrative 06/18/2025 10:10 AM EDT No acute fractures or dislocations at this time. Joint space narrowing noted to the first metatarsophalangeal joint. Joint space narrowing noted to the tarsal metatarsal joints and subtalar joint with sclerosis noted. Plantar and posterior calcaneal enthesophyte us Britney Benson DPM IMG DIAGNOSTIC IMAGING ORD ERABLES Final Result from Last 3 Months Insurance [employer] Care Teams Director Of Vital Statistics Relationship Specialty Start Date End Date No, Physician [facility] PCP - General 06/17/25
--- OUTSIDE RECORDS SUMMARY | 2025-06-28 20:38 | XMS_ITS | Encounter Summary ---
Author Organization [facility] Address [address] [place] [address] Care Team Providers Care Personnel Research Scientist Name Role Phone Iman Whittaker MD Primary Care Provider Holly Du MD Unavailable [phone] Encounter Details Date Type Department Care Team (Late st Contact Info) Description 06/28/2025 Bamboo flowsheet [facility] [address] [place] [phone] Chaya Caballero, FARAZ [address] [place] [address] Social History Tobacco Use Types Packs/Day Years [...] on filedocumented in this encounter Care Teams Personnel Research Scientist Relationship Specialty Start Date End Date Iman Whittaker MD [address] [place] [phone] PCP - General Family Medicine 08/24/24 Holly Du MD [address] [place] [address] [address] [address] Referring Physician Family Medicine 02/23/25 documented as of this encounter
--- OUTSIDE RECORDS SUMMARY | 2025-06-28 20:38 | XMS_ITS | Encounter Summary ---
Author Organization [facility] Address [address] [place] [address] Care Team Providers Care Stain Sprayer Name Role Phone No, Physician Primary Care Provider Unavailabl e Encounter Details Date Type Department Care Team (Late Contact Info) Description 06/07/2025 Abstract [facility] Podiatry [address] [place] [phone] Britney Benson DPM [address] [place], [place] [phone] Social History Tobacco Use Types Packs/Day Years [...] Description 07/05/2025 3:30 PM EDT Office Visit [facility] Podiatry [address] [place] [address] Britney Benson DPM [address] [place], [place] [phone] documented as of this encounter Visit Diagnoses Not on filedocumented in this encounter Care Teams Stain Sprayer Relationship Specialty Start Date End Date No, Physician [facility] PCP - General 06/17/25 documented as of this encounter
--- OUTSIDE RECORDS SUMMARY | 2025-06-28 20:39 | XMS_ITS | Encounter Summary ---
Author Organization [facility] Address [address], [address] [place] [address] Care Team Providers Care Retail Merchandising Specialist Name Role Phone Unavailable Primary Care Provider Unavailabl e Reason for Visit * Reason Comments Medication Refill Encounter Details Date Type Department Care Team (Late st Contact Info) Description 05/17/2025 [facility] Primary Care [address] [address] Sally De Anda APRN - ELHAM [address] [facility] [address] [place] [address] Medication Refill Social History Tobacco Use Types Packs/Day Years Used Date Smoking Tobacco: Never Assessed Comments Unknown Sex and Gender Information Value Date Recorded Sex Assigned at Not on file Legal Sex Female 9:27 AM EDT Gender Identity Not on file Sexual Orientation Not on file documented as of this encounter Plan of Treatment Not on file documented as of this encounter Visit Diagnoses Not on filedocumented in this encounter
--- OUTSIDE RECORDS SUMMARY | 2025-06-28 20:39 | XMS_ITS | Clinical Summary ---
Author Organization [facility] Address [address] [address] Care Team Providers Care Printing Agent Name Role Phone Unavailable Primary Care Provider Unavailabl e Medications albuterol sulfate HFA (PROVENTIL;VENT NALDO;PROAIR) 108 (90 Base) MCG/ACT inhaler INHALE TWO (2) PUFFS BY MOUTH FOUR TIMES A DAY NEEDED FOR WHEEZING 18 g 10 4 Active hydrOXYzine pamoate (VISTARIL) 50 MG capsule TAKE 1 CAPSULE BY MOUTH EVERY AFTERNOON AND TAKE 2 CAPSULES AT BEDTIME 90 capsule 10 4 Active potassium chloride (KLOR-CON) 10 MEQ extended release tablet Take 1 tablet by mouth 3 times daily 90 tablet 10 4 Active pantoprazole (PROTONIX) 40 MG tablet Take 1 tablet by mouth daily 30 tablet 10 4 Active tiZANidine (ZANAFLEX) 4 MG tablet TAKE 2 TABLETS BY MOUTH 3 TIMES DAILY NEEDED FOR SPASM 180 tablet 10 5 Active lamoTRIgine (LAMICTAL) 200 MG tablet TAKE 1 TABLET BY MOUTH DAILY 90 tablet 11 5 Active Encounters Date Type Department Care Team Description 06/21/2025 Refill [facility] Primary Care [address] [address] Sally De Anda APRN - CNP Medication Refill 06/20/2025 Refill [facility] Primary Care [address] [address] Sally De Anda APRN - CNP Medication Refill 05/17/2025 Refill [facility] Primary Care [address] [facility] [address] [place] [address] Sally De Anda APRN - CNP Medication Refill from Last 3 Months Social History Tobacco Use Types Packs/Day Years Used Date Smoking Tobacco: Never Assessed Comments Unknown Sex and Gender Information Value Date Recorded Sex Assigned at Not on file Legal Sex Female 9:27 AM EDT Gender Identity Not on file Sexual Orientation Not on file Plan of Treatment Health Maintenance Due Date Last Done Comments Depression Screen 1990 HIV screen 1993 Hepatitis C screen 1996 DTaP/Tdap/Td vaccine (1 - Tdap) 1997 Hepatitis B vaccine (1 of 3 - 19+ 3-dose series) 1997 Pap smear 1999 Cervical cancer screen 2008 HPV (without or with Pap) 2008 Breast cancer screen 2018 Lipids 2018 Colonoscopy 2023 Colorectal Cancer Screen 2023 FIT/FOBT: Average risk 2023 Fecal-DNA (Cologuard): Average risk 2023 Sigmoidoscopy/CT colonography 2023 COVID-19 Vaccine ( - 2023-2 5 season) 2024 Flu vaccine (#1) 06/25/2025 HPV vaccine Aged Out No longer eligi ble based on patient's age to complete this topic Hepatitis A vaccine Aged Out No longe r eligible based on patient's age to complete this topic Hib vaccine Aged Out No longer eligi ble based on patient's age to complete this topic Meningococcal (ACWY) vaccine Aged Out No longer eligible based on patient's age to complete this topic Meningococcal B vaccine Aged Out No l onger eligible based on patient's age to complete this topic Pneumococcal 0-49 years Vaccine Aged Out No longer eligible based on patient's age to complete this topic Polio vaccine Aged Out No longer elig ible based on patient's age to complete this topic
--- OUTSIDE RECORDS SUMMARY | 2025-06-28 20:39 | XMS_ITS | Encounter Summary ---
Author Organization [facility] Address [address], [address] [place] [address] Care Team Providers Care Thread Grinder Name Role Phone Unavailable Primary Care Provider Unavailabl e Reason for Visit * Reason Comments Medication Refill Encounter Details Date Type Department Care Team (Late st Contact Info) Description 06/21/2025 [facility] Primary Care [address] [address] Sally De Anda APRN - ELHAM [address] [facility] [address] [place] [address] Medication Refill Social History Tobacco Use Types [...]
--- OUTSIDE RECORDS SUMMARY | 2025-06-28 20:39 | XMS_ITS | Encounter Summary ---
Author Organization [facility] Address [address], [address] [place] [address] Care Team Providers Care Sample Driller Name Role Phone Unavailable Primary Care Provider Unavailabl e Reason for Visit * Reason Comments Medication Refill Encounter Details Date Type Department Care Team (Late st Contact Info) Description 06/20/2025 [facility] Primary Care [address] [address] Sally De Anda APRN - ELHAM [address] [facility] [address] [place] [address] Medication Refill Social History Tobacco Use Types [...]
[2025-07-01 12:09] LABS: Age Gdln ACOG Testing Note (.); IGP, Aptima HPV, rfx 16/18,45 Note (.)
== END 2025-06-28 20:35 | disposition home or self-care (01) ==
LOC: LAB 20:34
PROVIDERS: PCP Nurse Practitioner Family; Visit Provider Nurse Practitioner Family
DX: Z01.419 Encounter for gynecological examination (general) (routine) without abnormal findings (principal)
CPT/HCPCS: 87624; 88175